=== PATIENT | male | born 1965 | race Caucasian/White ===

== ENCOUNTER 2022-02-04 07:22 | Day surgery (SDC) | payer OTHER, SELFPAY ==
[2022-02-04] VITALS (12 sets, daily range): BP systolic 76–157; BP diastolic 43–97; PULSE 44–57; RESP 14–16; TEMP 36.1–37; O2SAT 92–98; BMI 30.6
[2022-02-04] MEDS: LACTATED RINGERS 1000 ML 1,000 ML 100 ML IV ×2 (08:08→11:09)
[2022-02-04] MEDS: SODIUM CHLORIDE 0.9 % (FLUSH) 10 ML SYRINGE IVF (08:13)
[2022-02-04] MEDS: CEFAZOLIN 2 GM INJ IVP (10:21)
--- NOTE | 2022-02-04 10:48 | P.ORPRC_ITS ---
Procedure Note Procedure: SURGEON: Randy Randall MD PAID [employer] STRATEGIST: JOHN Wills PREOPERATIVE DIAGNOSIS: Right knee medial meniscus tear POSTOPERATIVE DIAGNOSIS: Right knee medial meniscus tear NAME OF OPERATION: Right knee arthroscopic partial medial meniscectomy ANESTHESIA: Spinal ESTIMATED BLOOD LOSS: 0 mL COMPLICATIONS: None SPECIMENS: None DRAINS: None PREOPERATIVE ANTIBIOTICS: Ancef 2 gram INDICATIONS: The patient is a 56-year-old male with a history of right knee medial pain. MRI scan is consistent with a medial meniscus tear. Despite appropriate nonoperative management, including activity modification, antiinflammatories, [id number] pain medication, bracing, physical therapy, and injections they continue to have pain and disability. Operative intervention was offered. The risks, benefits and expected outcomes were discussed in detail. These included but were not limited to: Infection, bleeding, injury to blood vessel or nerve, venous thromboembolism. All questions were answered to their satisfaction. PROCEDURE: Spinal anesthesia was administered. The patient was placed supine on the operating room table. The right lower extremity was prepped and draped in the usual sterile fashion. The limb was exsanguinated with the Juan Carlos bandage. The pneumatic tourniquet was inflated to 300 mmHg. A standard anterolateral portal was established. The arthroscope was introduced. The working portal was established anteromedially. Diagnostic arthroscopy was performed with findings as follows: The suprapatellar pouch is normal. Articular surface on the patella is normal. Articular surface on the trochlea is normal. The medial gutter is normal. The medial compartment shows normal articular cartilage on the medial femoral condyle and medial tibial plateau. The medial meniscus has a complex degenerative tear of midbody and posterior horn. This consists of a radial tear at the junction of the midbody and posterior horn with some undersurface horizontal cleavage tearing of both sites. The notch shows the ACL to be intact. The lateral compartment shows normal articular cartilage on the lateral femoral condyle and lateral tibial plateau. The lateral meniscus has some leading edge fraying. There appears to be a ganglion at the anterior tibial attachment, just lateral to the ACL insertion. The lateral gutter is normal. The posterior horn of the medial meniscus was debrided to a stable base using a combination of baskets and shaver through both portals. The area where the ganglion was located over the anterior horn of the lateral meniscus was debrided with the shaver. Arthroscopic instruments were removed, the portal sites were Steri-Stripped closed, the knee was infiltrated with 30 mL of 0.25% Marcaine without epinephrine. A dry dressing was applied, the tourniquet was released. Sponge and needle counts were correct x 2. The patient tolerated the procedure well. There were no apparent complications. They were carefully transferred to the hospital bed and taken to the postanesthesia care unit in satisfactory condition. PLAN: The patient will be discharged to home. They may weightbear as tolerates. Range of motion will be unrestricted. They will follow up in the office next week for a wound check.
[2022-02-04] MEDS: BUPIVACAINE 0.25% 30 ML 15 ML INJECTION (10:53)
--- NOTE | 2022-02-04 11:01 | W.ANESCHARGE ---
Anesthesia Charges Start Date/Time Anesthesia Start Date: 02/04/22 Anesthesia Start Time: 09:24 Stop Date/Time Anesthesia Stop Date: 02/04/22 Anesthesia Stop Time: 10:55 Summary Emergency: No
--- NOTE | 2022-02-04 13:02 | W.ANESCHARGE ---
Anesthesia Charges Start Date/Time Anesthesia Start Date: 02/04/22 Anesthesia Start Time: 09:24 Stop Date/Time Anesthesia Stop Date: 02/04/22 Anesthesia Stop Time: 10:55 Summary Emergency: No
== END 2022-02-04 12:39 | disposition home or self-care (01) ==
PROVIDERS: Visit Provider Orthopaedic Surgery
PROC: (CPT 29882; principal; 2022-02-04 10:00)
DX: M23.221 Derangement of posterior horn of medial meniscus due to old tear or injury, right knee (principal)
CPT/HCPCS: 29881; 1400; J0690; J1100; J2250; J2400; J2405; J2704; J3010; J3490; J7120

== ENCOUNTER 2023-05-23 16:20 | Emergency (ER) | payer OTHER, SELFPAY ==
[2023-05-23 16:28] VITALS: BP 168/101; PULSE 63; RESP 16; TEMP 36.3; O2SAT 95; BMI 30.8
--- NOTE | 2023-05-23 16:39 | ED.NURSE ---
Pt L finger lac soaking in hibiclens.
--- NOTE | 2023-05-23 16:40 | CRLHL7_ITS ---
For Patients: As a result of the Cures Act, medical imaging exams and procedure reports are released immediately into your electronic medical record. You may view this report before your referring provider. If you have questions, please contact your health care provider. INDICATION: Chainsaw injury COMPARISON: None. TECHNIQUE: Three views left 2nd finger. FINDINGS: No fracture. Normal mineralization. No focal bone lesion. JOINT: Normal joint alignment. Joint spaces: Normal. Soft Tissues: Complex soft tissue laceration. No foreign body. IMPRESSION: Complex soft tissue injury of the left 2nd finger. No imbedded foreign body or fracture seen. Dictated by Andree Ruby MD @ 05/23/2023 5:45:16 PM (Electronically Signed)
--- NOTE | 2023-05-23 18:13 | ED_ITS ---
HPI - Wound/Laceration General Date Seen: 05/23/23 Chief Complaint: Laceration/Wound Stated Complaint: Laceration L Time Seen by Provider: 05/23/23 16:30 Source: patient Mode of arrival: ambulatory Limitations: no limitations History of Present Illness HPI narrative: Patient is a 58-year-old male presenting to emergency department for a finger laceration. He says he was using a chainsaw piece of wood when it caught something jumped up and hitting his left index finger. Denies any other injuries. Has full range motion of the finger. Denies numbness. No other concerns at this time Related Data Home Medications Medication Instructions Recorded Confirmed aspirin 81 mg tablet,delayed 81 mg PO DAILY 02/03/22 02/10/22 release atenolol 50 mg tablet 50 mg PO DAILY 02/03/22 02/10/22 atorvastatin 10 mg tablet 10 mg PO HS 02/03/22 02/10/22 cetirizine 10 mg tablet 10 mg PO DAILY 02/03/22 02/10/22 lisinopril 10 mg tablet 30 mg PO DAILY 02/03/22 02/10/22 Previous Rx's Medication Instructions Recorded oxycodone-acetaminophen 5 mg-325 1 tab PO Q4-6H PRN pain #5 tabs 02/04/22 mg tablet (Percocet) Allergies Allergy/AdvReac Type Severity Reaction Status Date / Time No Known Allergies Allergy Verified 02/10/22 15:55 Review of Systems Narrative: Negative unless stated in the HPI [facility] Medical History [place] syndrome Hyperlipemia Hypertension Surgical History S/P right knee arthroscopy Social History Smoking Status: Never smoker How often do you have a drink containing alcohol: monthly or less How many standard drinks containing alcohol do you have on a typical day: 1 or 2 AUDIT-C Alcohol total score: 1 Non-prescribed substance use: denies use Caffeine: No Exam Narrative: Exam Narrative: Const: Well-nourished, Well-developed, in mild distress Eyes: PERRL, no conjunctival injection, and symmetrical lids HENT: Atraumatic external nose and ears. Moist mucous membranes. MSK:Extremities w/o deformity, Normal Active ROM Skin: Warm, Dry. 0.5 x 0.5 area of avulsion noted just proximal to the DIP left 2nd finger. No involvement of the tendons but did falls some of the fatty tissue Neuro: Normal Muscle tone, No focal neurological deficits. Psych: Awake, Alert, & Oriented x3. Appropriate mood and affect. Const: Vital Signs, click to edit/add: Vital Signs - 24 hr 05/23/23 16:28 Temperature 97.3 F L Pulse Rate [Pulse Oximeter] 63 Respiratory Rate 16 Blood Pressure [Ri t Upper Arm] 168/101 H Pulse Oximetry 95 Oxygen Delivery Me thod Room Air Course Vital Signs Vital signs: Initial Vital Signs Temperature 97.3 F L 05/23/23 16:28 Temperature Source Temporal Artery Scan 05/23/23 16:28 Pulse Rate 63 05/23/23 16:28 Respiratory Rate 16 05/23/23 16:28 Blood Pressure 168/101 H 05/23/23 16:28 Blood Pressure Mean 123 H 05/23/23 16:28 Blood Pressure Position Sitting 05/23/23 16:28 Pulse Oximetry 95 05/23/23 16:28 Oxygen Delivery Method Room Air 05/23/23 16:28 Vital Signs Temperature 97.3 F L 05/23/23 16:28 Pulse Rate 63 05/23/23 16:28 Respiratory Rate 16 05/23/23 16:28 Blood Pressure 168/101 H 05/23/23 16:28 Pulse Oximetry 95 05/23/23 16:28 Oxygen Delivery Method Room Air 05/23/23 16:28 Temperature 97.3 F L 05/23/23 16:28 Pulse Rate 63 05/23/23 16:28 Respiratory Rate 16 05/23/23 16:28 Blood Pressure 168/101 H 05/23/23 16:28 Pulse Oximetry 95 05/23/23 16:28 Oxygen Delivery Method Room Air 05/23/23 16:28 MDM - Wound/Laceration MDM Narrative Medical decision making narrative: Patient is a 58-year-old male presenting to emergency department for scan and soft tissue avulsion injury of his left 2nd finger. It occurred just proximal to the distal interphalangeal joint does not appear to involve the joint. He has full range of motion of that finger at this time and no signs of injury to the tendon. I did do an x-ray to make sure there is no deeper structure injuries in that showed just the avulsion injury. No other injuries noted. I did evaluate the injury after I did a digital nerve block. There was no Skin available for closure. Due to this we will leave it open and it will heal by secondary intention. We will place him on Keflex all of precaution considering the nature of the injury. He is up-to-date on his tetanus shot and does not need a new 1. Patient is given strict return precautions to look for signs of infection. In for known to have evaluation of in 1 week with primary care doctor. He is agreeable to this plan. Imaging Data Finger x-ray: Radiologist's impression: INDICATION: Chainsaw injury COMPARISON: None. TECHNIQUE: Three views left 2nd finger. FINDINGS: No fracture. Normal mineralization. No focal bone lesion. JOINT: Normal joint alignment. Joint spaces: Normal. Soft Tissues: Complex soft tissue laceration. No foreign body. IMPRESSION: Complex soft tissue injury of the left 2nd finger. No imbedded foreign body or fracture seen. Dictated by Andree Ruby MD @ 05/23/2023 5:45:16 PM Discharge Plan Discharge Clinical Impression: Avulsion of skin Patient Disposition: Home, Self-Care Condition: Stable Instructions: Skin Avulsion (ED) Additional Instructions: Follow-up with the primary care provider in 1 week for evaluation of the finger and make sure it is healing appropriately. If you have any concern that there is infection spreading any finger please return to the emergency department immediately. Hand infections can get back quickly as better to be safe in these situations. Signs to look for including pain with extension or flexion. Pain will when you touch the finger, swelling or such as like appearance of the finger. Prescriptions: No Action aspirin 81 mg tablet,delayed release (DR/EC) 81 mg PO DAILY atenolol 50 mg tablet 50 mg PO DAILY atorvastatin 10 mg tablet 10 mg PO HS cetirizine 10 mg tablet 10 mg PO DAILY lisinopril 10 mg tablet 30 mg PO DAILY oxycodone-acetaminophen [Percocet] 5-325 mg tablet 1 tab PO Q4-6H PRN (Reason: pain) Qty: 5 0RF Follow Up/Referrals: Provider,Not a Local [Primary Care Provider] - Stand Alone Forms: [employer] [facility] Info Instructions
--- NOTE | 2023-05-23 18:20 | ED.NURSE ---
Pt L index finger lac bandaged: bacitracin, telfa, gauze roll, coban.
== END 2023-05-23 18:31 | disposition home or self-care (01) ==
PROVIDERS: Emergency Provider Student in an Organized Health Care Education/Training Program
DX: S61.201A Unspecified open wound of left index finger without damage to nail, initial encounter (principal); W29.3XXA Contact with powered garden and outdoor hand tools and machinery, initial encounter
CPT/HCPCS: 73140; 99283; 99284